=== PATIENT | female | born 1965 | race Caucasian/White ===

== ENCOUNTER → 2017-01-02 | Outpatient (CLI) | payer OTHER ==
[~2017-01-02] MED LIST: IBUP-1773 PO; fLEXERIL
--- NOTE | 2017-01-05 10:42 | Diagnostic Imaging Report ---
EXAMINATION: Screening mammogram. COMPARISON: None available. TECHNIQUE: Digital screening mammography was obtained with CAD and 3-dimensional tomosynthesis. FINDINGS: There is an oval-shaped mass in the anterior aspect of the right breast, best seen on the CC view. This is probably at the 4 to 5 o'clock position. Recommend spot compression views and/or ultrasound. There are no suspicious calcifications. Scattered fibroglandular densities are seen in both breasts. The left breast is unremarkable. IMPRESSION: 1. Small mass in the right breast as described above. Compression views with ultrasound would be recommended. 2. Stable left breast. ACR BI-RADS Category 0: Incomplete. (Needs additional imaging evaluation). Result letter will be mailed to the patient. Note: At least 10% of breast cancer is not imaged by mammography. Dictated by: Dictated on workstation # [id number]
== END ==
LOC: RAD 13:27
PROVIDERS: ATTEND Nurse Practitioner Family
DX: Z12.31 Encounter for screening mammogram for malignant neoplasm of breast (principal)
CPT/HCPCS: 77067

== ENCOUNTER → 2017-01-21 | Outpatient (CLI) | payer OTHER ==
[2017-01-21 10:18] LABS: CREATININE SERUM 0.83 MG/DL (0.60-1.30)
== END ==
LOC: LAB 09:24
PROVIDERS: ATTEND Nurse Practitioner Family
DX: R51 Headache (principal)
CPT/HCPCS: 36415; 82565; 84520

== ENCOUNTER → 2017-01-21 | Outpatient (CLI) | payer OTHER ==
--- NOTE | 2017-01-21 11:22 | Diagnostic Imaging Report ---
EXAMINATION: Ultrasound of the right breast. INDICATION: Abnormal mammogram. FINDINGS: The screening mammogram performed on 01/02/2017 noted a small mass in the retroareolar region of the right breast on the craniocaudad view. This finding was not well imaged on the MLO view. The diagnostic mammogram performed earlier today suggested that this nodule measured approximately 8 mm and had a generally benign appearance; however, this finding could not be identified on the MLO view. The ultrasound examination of the retroareolar region and medial half of the right breast fails to show any discrete solid or cystic mass. The etiology of the density seen on the screening mammogram is not certain; however, the tomographic images of this lesion suggest that it has a benign appearance. I would recommend that a short-term (6 month) followup mammogram and perhaps ultrasound of the right breast be obtained for continued evaluation. IMPRESSION: The small oval density seen on the screening mammogram could not be clearly identified as cystic or solid on this study. The mammographic appearance of this finding suggests that it is most likely benign. A 6 month followup mammogram and perhaps ultrasound would be recommended for continued study. ACR BI-RADS Category 3: Probably benign findings. Result letter will be mailed to the patient. Note: At least 10% of breast cancer is not imaged by mammography. Dictated by: Dictated on workstation # [id number]
--- NOTE | 2017-01-22 10:26 | Diagnostic Imaging Report ---
EXAMINATION: Unilateral diagnostic right mammogram. INDICATION: Oval shaped mass in the right breast. COMPARISON: 01/02/2017. FINDINGS: The screening mammogram performed on 01/02/2017 was done without the benefit of a comparison study. The screening mammogram did note an oval-shaped 8 mm nodular density in the retroareolar region of the right breast on the craniocaudad view. This finding was difficult to identify with certainty on the MLO view but appeared to be in the superior aspect of the breast. This density does not seem as conspicuous on the compression views of this study and it still cannot be identified with certainty on the ML view. The tomographic views do suggest that this has a generally benign appearance with a smooth margin. I would recommend that ultrasound be performed for further study. IMPRESSION: Ultrasound would be recommended for further evaluation of the small benign-appearing nodular density in the retroareolar region of the right breast. ACR BI-RADS Category 0: Incomplete. (Needs additional imaging evaluation). Result letter will be mailed to the patient. Note: At least 10% of breast cancer is not imaged by mammography. Dictated by: Dictated on workstation # [id number]
== END ==
LOC: RAD 08:20
PROVIDERS: ATTEND Nurse Practitioner Family
DX: N63 Unspecified lump in breast (principal)

== ENCOUNTER → 2017-01-23 | Outpatient (CLI) | payer OTHER ==
[~2017-01-23] MED LIST changes: +GADOBUTROL 10 MMOL/10 ML (GADAVIST) VIAL IV ONE
--- NOTE | 2017-01-23 08:49 | Diagnostic Imaging Report ---
PROCEDURE: MR imaging of the brain with and without contrast. TECHNIQUE: Multiplanar, multisequence MR imaging of the brain was performed with and without contrast. INDICATION: Headache. There are no previous MRI examinations available for comparison. There is no mass, shift of the midline, or hemorrhage to suggest an acute intracranial abnormality. There is no abnormal enhancement on the postcontrast series to indicate a neoplastic or infectious process either. Furthermore, there is no signal abnormality arising from the brain on the diffusion sequence to indicate an area of acute ischemia. The ventricles are not abnormally dilated. The FLAIR series is unremarkable for any signal abnormality in the periventricular white matter that would indicate demyelinating disease. The orbits are symmetrical and within normal limits. The optic chiasm is undisturbed. The sella is not enlarged, and the expected carotid flow voids are evident bilaterally. There is a small 0.9 x 1.1-cm retention cyst in the sphenoid sinus on the right. The sinuses are otherwise generally clear. The cranial nerve VII and VIII complexes are unremarkable. IMPRESSION: 1. There is no evidence for an acute intracranial abnormality. 2. There is no sign of a mass lesion or demyelinating disease. 3. There is a small retention cyst in the right sphenoid sinus. Dictated by: Dictated on workstation # [id number]
== END ==
LOC: RAD 07:16
PROVIDERS: ATTEND Nurse Practitioner Family
DX: R51 Headache (principal)
CPT/HCPCS: 70553

== ENCOUNTER → 2017-01-23 | Outpatient (CLI) | payer OTHER ==
[~2017-01-23] MED LIST changes: -GADOBUTROL 10 MMOL/10 ML (GADAVIST) VIAL IV ONE
--- NOTE | 2017-01-23 09:45 | Diagnostic Imaging Report ---
PROCEDURE: US abdomen complete. TECHNIQUE: Multiple real-time grayscale images were obtained over the abdomen in various projections. INDICATION: Abdominal pain. COMPARISON: None. FINDINGS: The liver appears mildly echogenic suggestive of diffuse hepatic steatosis. No focal hepatic mass is seen. There is no biliary dilatation. The common bile measures about 5 mm. The gallbladder appears unremarkable. The pancreas is not well seen. The spleen measures 9.2 cm in length and appears normal. The abdominal aorta and inferior vena cava are unremarkable as visualized. The right kidney measures 11 cm and left kidney measures 10.5 cm in length. Both kidneys appear unremarkable. There is no ascites or sonographic Up's sign. IMPRESSION: 1. Diffuse hepatic steatosis. 2. No additional abnormality is seen. Limited visualization of pancreas and abdominal aorta. Dictated by: Dictated on workstation # [id number]
== END ==
LOC: RAD 07:13
PROVIDERS: ATTEND Nurse Practitioner Family
DX: R10.10 Upper abdominal pain, unspecified (principal)
CPT/HCPCS: 76700

== ENCOUNTER → 2017-07-29 | Outpatient (CLI) | payer OTHER ==
--- NOTE | 2017-07-29 15:28 | Diagnostic Imaging Report ---
EXAMINATION: Ultrasound of the right breast limited. INDICATION: Abnormal mammogram. FINDINGS: The diagnostic mammogram performed earlier today noted that the small area of increased density in the retroareolar region of the right breast seen on the previous exam from 01/21/2017 appeared stable. The previous right breast ultrasound exam failed to show any discrete solid or cystic mass to correspond to the density seen on the mammogram; however, on this study, there is now a 0.4 x 0.7 x 0.6 cm area of mixed echogenicity in the 1 o'clock position of the breast roughly 7 cm from nipple. This may represent a cluster of cysts and this could correspond to the density seen on the mammogram. There is no increased vascularity in this area to suggest an underlying malignant process. I do suspect that this is a benign finding. Even so, I would recommend that this area be reevaluated by ultrasound when the patient has her annual mammogram on schedule in January 2018. IMPRESSION: There appears to be a small cluster of cysts in the 1 o'clock position. This may well correspond to the density seen on the mammogram. This is most likely a benign process. Recommendations as above. ACR BI-RADS Category 3: Probably benign findings. Dictated by: Dictated on workstation # [id number]
--- NOTE | 2017-07-29 19:30 | Diagnostic Imaging Report ---
INDICATION: Abnormal screening mammogram. EXAMINATION: Unilateral right breast digital diagnostic mammogram with CAD. The current study was also evaluated with a Computer Aided Detection (CAD) system. FINDINGS: The screening mammogram performed on 01/02/17 noted a small oval-shaped mass in the anterior aspect of the right breast on the craniocaudad view. The subsequent diagnostic mammogram and ultrasound exam performed on 01/21/2017 suggested that this finding was most likely a benign process. On this exam the oval density in question is again identified and no different. I do suspect that this is a benign process. A repeat ultrasound exam has been scheduled for further study. The overall appearance of the right breast is otherwise no different. There is no primary or secondary sign of malignancy noted. IMPRESSION: The small oval density in the retroareolar region of the right breast, seen previously, appears stable. Most likely this is a benign process. Ultrasound would be recommended for further study. ACR BI-RADS Category 0: Incomplete. (Needs additional imaging evaluation). Result letter will be mailed to the patient. Note: At least 10% of breast cancer is not imaged by mammography. Dictated by: Dictated on workstation # [id number]
== END ==
LOC: RAD 13:27
PROVIDERS: ATTEND Nurse Practitioner Family
DX: R92.8 Other abnormal and inconclusive findings on diagnostic imaging of breast (principal)

== ENCOUNTER → 2018-02-22 | Outpatient (CLI) | payer OTHER ==
--- NOTE | 2018-02-22 14:37 | Diagnostic Imaging Report ---
INDICATION: Six-month followup. The current study was also evaluated with a Computer Aided Detection (CAD) system. 3D tomographic images obtained and reviewed. Comparison made with prior examination from 07/29/2017 and 01/02/2017. FINDINGS: There are scattered fibroglandular densities bilaterally. The previously described density in the subareolar region right breast is unchanged. There is no new dominant mass, spiculated lesion or suspicious calcification identified. Skin, nipples and axilla are unremarkable. Ultrasound was also performed which is unchanged. IMPRESSION: Category 2 benign ACR BI-RADS Category 2: Benign findings. Result letter will be mailed to the patient. Note: At least 10% of breast cancer is not imaged by mammography. Dictated by: Dictated on workstation # [id number]
--- NOTE | 2018-02-22 14:50 | Diagnostic Imaging Report ---
INDICATION: Six-month followup. FINDINGS: There is a slightly complex cyst again seen in the 1 o'clock position of the right breast 7 cm from the nipple. This measures roughly 0.7 x 0.4 x 0.6 cm. This is essentially unchanged when compared to the prior examination. No other discrete solid or cystic masses are appreciated. IMPRESSION: Stable complex cyst in the right breast. ACR BI-RADS Category 2: Benign findings. Dictated by: Dictated on workstation # [id number]
== END ==
LOC: RAD 12:30
PROVIDERS: ATTEND Physician Assistant
DX: N60.01 Solitary cyst of right breast (principal); R92.2 Inconclusive mammogram
CPT/HCPCS: 77066

== ENCOUNTER → 2018-09-14 | Outpatient (CLI) | payer SELFPAY ==
[~2018-09-14] MED LIST changes: +HOLD METFORMIN - RECEIVED CONTRAST 20 ML VIAL IV SCH; +IOHEXOL 350 MG/ML 100 ML (OMNIPAQUE 350) VIAL IV ONE
[2018-09-14 08:11] LABS: BUN/CREATININE RATIO 11; CREATININE SERUM 0.82 MG/DL (0.60-1.30); GFR ESTIMATED > 60
--- NOTE | 2018-09-14 11:54 | Diagnostic Imaging Report ---
PROCEDURE: CT chest with contrast only. TECHNIQUE: Multiple contiguous axial images were obtained through the chest after administration of intravenous contrast. Auto Exposure Controls were utilized during the CT exam to meet ALARA standards for radiation dose reduction. INDICATION: Pain under rib cage and cough. FINDINGS: There are no discrete nodules masses or infiltrates. No pleural or pericardial fluid. There is no pneumothorax. Heart size is normal. Thoracic aorta is normal in caliber. No pathologically enlarged adenopathy in the chest. The visualized intra-abdominal structures are unremarkable. The osseous structures are unremarkable. IMPRESSION: Unremarkable CT chest. Dictated by: Dictated on workstation # [id number]
== END ==
LOC: RAD 07:42
PROVIDERS: ATTEND Family Medicine
DX: J44.9 Chronic obstructive pulmonary disease, unspecified (principal)
CPT/HCPCS: 36415; 71260; 82565; 84520

== ENCOUNTER → 2020-02-20 | Outpatient (CLI) | payer SELFPAY ==
[~2020-02-20] MED LIST changes: -HOLD METFORMIN - RECEIVED CONTRAST 20 ML VIAL IV SCH; -IOHEXOL 350 MG/ML 100 ML (OMNIPAQUE 350) VIAL IV ONE
--- NOTE | 2020-02-20 12:48 | Diagnostic Imaging Report ---
Indication: Shortness of breath. Time of exam: 12:00 p.m. Correlation is made with prior chest 04/22/2016. The heart size is normal. The pulmonary vascularity is unremarkable. The lungs are clear. No infiltrate, effusion or pneumothorax is detected. Impression: No acute cardiopulmonary process is detected. Dictated by: Dictated on workstation # [id number]
== END ==
LOC: RAD FS 11:48
PROVIDERS: ATTEND Family Medicine
DX: J44.9 Chronic obstructive pulmonary disease, unspecified (principal); M79.89 Other specified soft tissue disorders
CPT/HCPCS: 71046

== ENCOUNTER → 2020-12-04 | Outpatient (CLI) | payer OTHER ==
--- NOTE | 2020-12-04 10:25 | Diagnostic Imaging Report ---
Indication: Back pain. Compared: 03/15/2016 Findings: Lumbar statures are stable and normal. The alignment is anatomic. There are degenerative changes and narrowing of the disc space with endplate sclerosis and osteophytes, most severe at the L5-S1 level and this shows a mild interval progression. There is a lower lumbar facet arthrosis not substantially changed. No fracture or stature loss. Impression: Normal alignment, progressive substantial spondylosis at the L5-S1 level, normal alignment, no acute-appearing abnormality. Dictated by: Dictated on workstation # [id number]
== END ==
LOC: RAD 09:47
PROVIDERS: ATTEND Family Medicine
DX: Z02.71 Encounter for disability determination (principal); M47.817 Spondylosis without myelopathy or radiculopathy, lumbosacral region
CPT/HCPCS: 72100

== ENCOUNTER → 2021-02-12 | Outpatient (CLI) | payer OTHER ==
[~2021-02-12] MED LIST changes: +RT-ALBUTEROL SULF 2.5 MG/3 ML PRE-MIX VIAL INH ONE
== END ==
LOC: RT 11:00
PROVIDERS: ATTEND Family Medicine
DX: Z02.71 Encounter for disability determination (principal); J44.9 Chronic obstructive pulmonary disease, unspecified
CPT/HCPCS: 94060